=== PATIENT | male | born 1975 | race Caucasian/White ===

== ENCOUNTER 2023-10-28 21:04 | Outpatient (CLI) | payer OTHER, SELFPAY | END 2023-10-28 21:05 | disposition home or self-care (01) | LOC: AMB 11-09 04:59 | PROVIDERS: PCP Family Medicine; Visit Provider Student in an Organized Health Care Education/Training Program | DX: R41.82 Altered mental status, unspecified (principal); R06.09 Other forms of dyspnea | CPT/HCPCS: A0425; A0433 ==